=== PATIENT | male | born 1950 | race Caucasian/White ===

== ENCOUNTER 2022-04-23 16:31 | Inpatient (IN) | payer OTHER, MEDICARE, MEDICAID ==
[~2022-04-23] VITALS: Ht 185.4 cm; Wt 142.4 kg
[~2022-04-23 16:31] MED LIST: ACET325T PO; ANT30 PO; CARV6.2554 PO; CEFAZOLIN 2 GM IVPB PREMIX 50 ML IV ONE; CLONIDINE PO; DEXAMETHASONE SOD PHOSPHATE 4 MG/ML VIAL ONE; DOCU-144 PO; DRISDOL PO; FURO-150 PO; HEPARIN SODIUM,PORCINE/NS/PF 1,000 UNITS/500 ML BAG IV ONE; HYDR-3917 PO; HYDR-4039 PO; LIDOCAINE 1% 10 MG/ML, 20 ML MDV ONE; LIP40 PO; NEU300 PO; NIFE90TA48 PO; NS 1000 ML IV.SOLN IV ONE; ONDANSETRON HCL 4 MG/2 ML VIAL ONE; POLY17PO4 PO; PROPOFOL 200MG/ 20ML VIAL (DIPRIVAN) IV ONE; SERT-131 PO; SEVOFLURANE 15 MIN GAS INH ONE; SUCCINYLCHOLINE CHLORIDE 20 MG/ML(QUELICIN) ONE; TELM80TA2 PO; TEMA15CA5 PO; VITD2000 PO; ePHEDrine sulfate 50 MG/ML VIAL ONE
[2022-04-23 17:35] VITALS: BP_SYST 173
[2022-04-23 18:08] LABS: BASOPHILS % (AUTO) 0.6 % (0.0-2.0); EOSINOPHILS # (AUTO) 0.2 K/uL (0.0-0.4); EOSINOPHILS % (AUTO) 3.1 % (0.0-4.0); HEMATOCRIT 26.2 % (36-54); HEMOGLOBIN 8.7 g/dL (14.0-18.0); LYMPHOCYTES # (AUTO) 2.2 K/uL (1.0-5.5); MEAN CORPUSCULAR HEMOGLOBIN 28 pg (27-31); MEAN CORPUSCULAR HGB CONC 33 % (32-36); MEAN CORPUSCULAR VOLUME 85 fL (79.0-98.0); MONOCYTES # (AUTO) 0.5 K/uL (0.0-1.0); MONOCYTES % (AUTO) 6.6 % (1.7-9.3); NEUTROPHILS # (AUTO) 4.6 K/uL (1.8-7.7); NEUTROPHILS % (AUTO) 60.7 % (40.0-70.0); PLATELET COUNT (AUTO) 276 K/uL (130-430); RED BLOOD CELL COUNT(AUTO) 3.09 MIL/uL (4.2-6.2); RED CELL DISTRIBUTION WIDTH 14.6 % (9.0-15.0); WHITE BLOOD COUNT (AUTO) 7.6 K/uL (4.8-10.8)
[2022-04-23] MEDS ORDERED: TAMS-11 PO (18:10)
[2022-04-23 18:14] LABS: CALCIUM 7.2 mg/dL (8.4-11.0); CREATININE 6.53 mg/dL (0.55-1.30)
[2022-04-23 18:26] LABS: POTASSIUM 6.6 mmol/L (3.5-5.1)
[2022-04-23 18:31] LABS: BILIRUBIN,URINE NEGATIVE (NEGATIVE); BLOOD, URINE NEGATIVE (NEGATIVE); CLARITY/URINE CLEAR (CLEAR); COLOR,URINE YELLOW (YELLOW); GLUCOSE,URINE NEGATIVE (NEGATIVE); KETONES,URINE NEGATIVE (NEGATIVE); LEUKOCYTE ESTERASE ,URINE NEGATIVE (NEGATIVE); NITRITE, URINE NEGATIVE (NEGATIVE); PROTEIN URINE 2+ (NEGATIVE); UROBILINOGEN,URINE 0.2 (0.2-1.0)
[2022-04-23 18:38] LABS: BACTERIA,URINE None Seen /HPF (None Seen); MUCUS,URINE None Seen /LPF (None Seen); RBC,URINE NONE SEEN /HPF (0-3); WBC,URINE 0-3 /HPF (0-3)
[2022-04-23] MEDS ORDERED: NACL 0.9% 1,000 ML IV ONE (19:15)
[2022-04-23] MEDS ORDERED: DEXTROSE 50% JECT 50 ML DISP.SYRIN IVP ONE (19:15)
[2022-04-23] MEDS ORDERED: INSULIN REGULAR, HUMAN 10 UNITS/0.1 ML INJ IVP ONE (19:15)
[2022-04-23] MEDS ORDERED: INSULIN REGULAR, HUMAN 100 UNITS/ML, 10 ML VIAL (humuLIN R) SUBCUT PRN (19:45)
[2022-04-23] MEDS ORDERED: GLUCOSE (DEXTROSE) ORAL GEL -Adults PO PRN (20:00)
[2022-04-23] MEDS ORDERED: DEXTROSE 50%-WATER 50 ML DISP.SYRIN IVP PRN (20:00)
[2022-04-23] MEDS ORDERED: D5W 1,000 ML IV PRN (20:00)
[2022-04-23] MEDS ORDERED: SODIUM POLYSTYRENE SULFONATE 15 GM/60 ML UDBTL PO ONE (21:45)
[2022-04-23] MEDS ORDERED: MAGNESIUM SULFATE 50 ML IV PRN (22:00)
[2022-04-23] MEDS ORDERED: ONDANSETRON HCL 4 MG/2 ML VIAL IVP PRN (22:00)
[2022-04-23] MEDS ORDERED: NALOXONE HCL 0.4 MG/ML AMP (NARCAN) IVP PRN ×2 (22:00)
[2022-04-23] MEDS ORDERED: POTASSIUM CHLORIDE 20 MEQ TAB.PRT.SR PO PRN (22:00)
[2022-04-23] MEDS ORDERED: LORazepam 1 MG TABLET PO PRN (22:00)
[2022-04-23] MEDS ORDERED: DOCUSATE SODIUM 100 MG CAPSULE PO PRN (22:00)
[2022-04-23] MEDS ORDERED: MORPHINE 2 MG/ML INJ. SYRINGE IVP PRN ×2 (22:00)
[2022-04-23] MEDS ORDERED: ZOLPIDEM TARTRATE 5 MG TABLET PO PRN (22:00)
[2022-04-23] MEDS ORDERED: MUPIROCIN 2% TOPICAL OINTMENT 22 GM NS PRN (22:00)
[2022-04-23] MEDS: NACL 0.9% 1,000 ML IV SCH (22:31)
[2022-04-23] MEDS: hydrALAZINE HCL 25 MG TABLET PO SCH (22:32)
[2022-04-23 22:40] VITALS: BP_SYST 142
[2022-04-24 06:45] LABS: BASOPHILS # (AUTO) 0.1 K/uL (0.0-0.2); BASOPHILS % (AUTO) 0.7 % (0.0-2.0); EOSINOPHILS # (AUTO) 0.2 K/uL (0.0-0.4); EOSINOPHILS % (AUTO) 2.2 % (0.0-4.0); HEMATOCRIT 28.2 % (36-54); HEMOGLOBIN 9.5 g/dL (14.0-18.0); LYMPHOCYTES # (AUTO) 1.5 K/uL (1.0-5.5); LYMPHOCYTES % (AUTO) 19.7 % (20.5-51.5); MEAN CORPUSCULAR HEMOGLOBIN 29 pg (27-31); MEAN CORPUSCULAR HGB CONC 34 % (32-36); MEAN CORPUSCULAR VOLUME 86 fL (79.0-98.0); MONOCYTES # (AUTO) 0.5 K/uL (0.0-1.0); NEUTROPHILS # (AUTO) 5.6 K/uL (1.8-7.7); NEUTROPHILS % (AUTO) 71.4 % (40.0-70.0); PLATELET COUNT (AUTO) 290 K/uL (130-430); RED CELL DISTRIBUTION WIDTH 14.6 % (9.0-15.0); WHITE BLOOD COUNT (AUTO) 7.8 K/uL (4.8-10.8)
[2022-04-24 07:04] LABS: CALCIUM 7.6 mg/dL (8.4-11.0); CREATININE 6.42 mg/dL (0.55-1.30); POTASSIUM 5.6 mmol/L (3.5-5.1)
[2022-04-24 08:00] VITALS: BP_SYST 195
[2022-04-24] MEDS: TAMSULOSIN HCL 0.4 MG CAP PO SCH (08:30)
[2022-04-24] MEDS: hydrALAZINE HCL 25 MG TABLET PO SCH ×3 (08:30→21:20)
[2022-04-24] MEDS: GABAPENTIN 300 MG CAPSULE PO SCH ×3 (08:30→21:21)
[2022-04-24] MEDS: SERTRALINE HCL 50 MG TABLET PO SCH (08:30)
[2022-04-24] MEDS: CARVEDILOL 6.25 MG TABLET (COREG) PO SCH ×2 (08:31→21:21)
[2022-04-24] MEDS: HEPARIN SODIUM,PORCINE 5,000 UNITS/ML VIAL SUBCUT SCH ×2 (08:32→21:24)
[2022-04-24] MEDS: NACL 0.9% 1,000 ML IV SCH (11:16)
[2022-04-24 12:10] VITALS: BP_SYST 176
[2022-04-24] MEDS: ACETAMINOPHEN 325 MG TABLET PO PRN (13:17)
[2022-04-24 16:10] VITALS: BP_SYST 199
[2022-04-24 19:54] VITALS: BP_SYST 191
[2022-04-24] MEDS: TEMAZEPAM 15 MG CAPSULE PO SCH (21:19)
[2022-04-24] MEDS: ATORVASTATIN 20 MG TABLET PO SCH (21:21)
[2022-04-24] MEDS: NIFEDIPINE 90 MG TABLET.SA (PROCARDIA XL 90 MG) PO SCH (21:37)
[2022-04-25] MEDS: NACL 0.9% 1,000 ML IV SCH ×2 (00:33→14:39)
[2022-04-25 00:47] VITALS: BP_SYST 151
[2022-04-25 06:43] LABS: BASOPHILS % (AUTO) 0.5 % (0.0-2.0); EOSINOPHILS # (AUTO) 0.2 K/uL (0.0-0.4); EOSINOPHILS % (AUTO) 2.8 % (0.0-4.0); HEMATOCRIT 25.1 % (36-54); HEMOGLOBIN 8.5 g/dL (14.0-18.0); LYMPHOCYTES % (AUTO) 28.1 % (20.5-51.5); MEAN CORPUSCULAR HEMOGLOBIN 29 pg (27-31); MEAN CORPUSCULAR HGB CONC 34 % (32-36); MEAN CORPUSCULAR VOLUME 85 fL (79.0-98.0); MONOCYTES # (AUTO) 0.5 K/uL (0.0-1.0); MONOCYTES % (AUTO) 7.5 % (1.7-9.3); NEUTROPHILS # (AUTO) 4.4 K/uL (1.8-7.7); NEUTROPHILS % (AUTO) 61.1 % (40.0-70.0); PLATELET COUNT (AUTO) 274 K/uL (130-430); RED BLOOD CELL COUNT(AUTO) 2.96 MIL/uL (4.2-6.2); RED CELL DISTRIBUTION WIDTH 14.1 % (9.0-15.0); WHITE BLOOD COUNT (AUTO) 7.1 K/uL (4.8-10.8)
[2022-04-25 07:36] VITALS: BP_SYST 125
[2022-04-25] MEDS: SERTRALINE HCL 50 MG TABLET PO SCH (09:07)
[2022-04-25] MEDS: TAMSULOSIN HCL 0.4 MG CAP PO SCH (09:08)
[2022-04-25] MEDS: hydrALAZINE HCL 25 MG TABLET PO SCH ×3 (09:08→21:31)
[2022-04-25] MEDS: CARVEDILOL 6.25 MG TABLET (COREG) PO SCH ×2 (09:08→21:32)
[2022-04-25] MEDS: GABAPENTIN 300 MG CAPSULE PO SCH ×3 (09:08→21:32)
[2022-04-25] MEDS: HEPARIN SODIUM,PORCINE 5,000 UNITS/ML VIAL SUBCUT SCH ×2 (09:09→21:42)
[2022-04-25 09:38] LABS: CALCIUM 7.3 mg/dL (8.4-11.0); CREATININE 6.42 mg/dL (0.55-1.30)
[2022-04-25 11:05] LABS: POTASSIUM 6.2 mmol/L (3.5-5.1)
[2022-04-25] MEDS ORDERED: SODIUM POLYSTYRENE SULFONATE 15 GM/60 ML UDBTL PO ONE ×2 (11:15→23:00)
[2022-04-25 12:00] VITALS: BP_SYST 134
[2022-04-25 16:00] VITALS: BP_SYST 166
[2022-04-25 20:02] VITALS: BP_SYST 185
[2022-04-25 21:07] LABS: CALCIUM 7.4 mg/dL (8.4-11.0); CREATININE 6.22 mg/dL (0.55-1.30); POTASSIUM 5.6 mmol/L (3.5-5.1)
[2022-04-25] MEDS: ATORVASTATIN 20 MG TABLET PO SCH (21:31)
[2022-04-25] MEDS: NIFEDIPINE 90 MG TABLET.SA (PROCARDIA XL 90 MG) PO SCH (21:31)
[2022-04-25] MEDS: TEMAZEPAM 15 MG CAPSULE PO SCH (21:32)
[2022-04-26 00:40] VITALS: BP_SYST 180
[2022-04-26] MEDS: NACL 0.9% 1,000 ML IV SCH ×2 (04:43→19:15)
[2022-04-26] MEDS: ACETAMINOPHEN 325 MG TABLET PO PRN (06:10)
[2022-04-26 06:52] LABS: BASOPHILS # (AUTO) 0.1 K/uL (0.0-0.2); BASOPHILS % (AUTO) 0.6 % (0.0-2.0); EOSINOPHILS # (AUTO) 0.3 K/uL (0.0-0.4); EOSINOPHILS % (AUTO) 3.1 % (0.0-4.0); HEMATOCRIT 26.8 % (36-54); LYMPHOCYTES # (AUTO) 2.7 K/uL (1.0-5.5); LYMPHOCYTES % (AUTO) 33.1 % (20.5-51.5); MEAN CORPUSCULAR HEMOGLOBIN 29 pg (27-31); MEAN CORPUSCULAR HGB CONC 34 % (32-36); MEAN CORPUSCULAR VOLUME 85 fL (79.0-98.0); MONOCYTES # (AUTO) 0.6 K/uL (0.0-1.0); MONOCYTES % (AUTO) 6.9 % (1.7-9.3); NEUTROPHILS # (AUTO) 4.6 K/uL (1.8-7.7); NEUTROPHILS % (AUTO) 56.3 % (40.0-70.0); PLATELET COUNT (AUTO) 291 K/uL (130-430); RED BLOOD CELL COUNT(AUTO) 3.16 MIL/uL (4.2-6.2); RED CELL DISTRIBUTION WIDTH 14.7 % (9.0-15.0); WHITE BLOOD COUNT (AUTO) 8.1 K/uL (4.8-10.8)
[2022-04-26 07:00] VITALS: BP_SYST 137
[2022-04-26 07:25] LABS: CALCIUM 7.6 mg/dL (8.4-11.0); CREATININE 6.53 mg/dL (0.55-1.30); POTASSIUM 5.1 mmol/L (3.5-5.1)
[2022-04-26 08:00] VITALS: BP_SYST 137
[2022-04-26] MEDS: HEPARIN SODIUM,PORCINE 5,000 UNITS/ML VIAL SUBCUT SCH (08:12)
[2022-04-26] MEDS: GABAPENTIN 300 MG CAPSULE PO SCH ×3 (08:21→20:49)
[2022-04-26] MEDS: TAMSULOSIN HCL 0.4 MG CAP PO SCH (08:21)
[2022-04-26] MEDS: SERTRALINE HCL 50 MG TABLET PO SCH (08:22)
[2022-04-26] MEDS: CARVEDILOL 6.25 MG TABLET (COREG) PO SCH ×2 (08:22→20:52)
[2022-04-26] MEDS: hydrALAZINE HCL 25 MG TABLET PO SCH ×3 (08:23→20:53)
[2022-04-26 12:00] VITALS: BP_SYST 145
[2022-04-26 17:01] VITALS: BP_SYST 138
[2022-04-26 20:00] VITALS: BP_SYST 135
[2022-04-26] MEDS: TEMAZEPAM 15 MG CAPSULE PO SCH (20:49)
[2022-04-26] MEDS: NIFEDIPINE 90 MG TABLET.SA (PROCARDIA XL 90 MG) PO SCH (20:50)
[2022-04-26] MEDS: ATORVASTATIN 20 MG TABLET PO SCH (20:51)
[2022-04-27] VITALS (7 sets, daily range): BP systolic 149–188
[2022-04-27] MEDS: HEPARIN SODIUM,PORCINE 5,000 UNITS/ML VIAL SUBCUT SCH ×3 (01:31→21:00)
[2022-04-27] MEDS: NACL 0.9% 1,000 ML IV SCH ×2 (05:31→23:51)
[2022-04-27 07:11] LABS: BASOPHILS # (AUTO) 0.1 K/uL (0.0-0.2); BASOPHILS % (AUTO) 0.6 % (0.0-2.0); EOSINOPHILS # (AUTO) 0.3 K/uL (0.0-0.4); EOSINOPHILS % (AUTO) 3.3 % (0.0-4.0); HEMATOCRIT 23.1 % (36-54); HEMOGLOBIN 7.8 g/dL (14.0-18.0); LYMPHOCYTES # (AUTO) 2.2 K/uL (1.0-5.5); LYMPHOCYTES % (AUTO) 27.1 % (20.5-51.5); MEAN CORPUSCULAR HEMOGLOBIN 29 pg (27-31); MEAN CORPUSCULAR HGB CONC 34 % (32-36); MEAN CORPUSCULAR VOLUME 85 fL (79.0-98.0); MONOCYTES # (AUTO) 0.6 K/uL (0.0-1.0); MONOCYTES % (AUTO) 7.2 % (1.7-9.3); NEUTROPHILS % (AUTO) 61.8 % (40.0-70.0); PLATELET COUNT (AUTO) 253 K/uL (130-430); RED BLOOD CELL COUNT(AUTO) 2.72 MIL/uL (4.2-6.2); RED CELL DISTRIBUTION WIDTH 14.1 % (9.0-15.0); WHITE BLOOD COUNT (AUTO) 8.1 K/uL (4.8-10.8)
[2022-04-27 08:18] LABS: CALCIUM 7.1 mg/dL (8.4-11.0); CREATININE 6.16 mg/dL (0.55-1.30); POTASSIUM 4.6 mmol/L (3.5-5.1)
[2022-04-27] MEDS: GABAPENTIN 300 MG CAPSULE PO SCH ×3 (08:26→21:50)
[2022-04-27] MEDS: TAMSULOSIN HCL 0.4 MG CAP PO SCH (08:26)
[2022-04-27] MEDS: hydrALAZINE HCL 25 MG TABLET PO SCH ×3 (08:26→21:51)
[2022-04-27] MEDS: CARVEDILOL 6.25 MG TABLET (COREG) PO SCH ×2 (08:28→21:50)
[2022-04-27] MEDS: SERTRALINE HCL 50 MG TABLET PO SCH (08:29)
[2022-04-27] MEDS ORDERED: SOD FERRIC GLUC COMPLEX/SUC 125 MG in NS 100 ML IV ONE (18:45)
[2022-04-27] MEDS ORDERED: SOD FERRIC GLUC COMPLEX/SUC 62.5 MG/5 ML VIAL (FERRLECIT) IV ONE (19:50)
[2022-04-27] MEDS: TEMAZEPAM 15 MG CAPSULE PO SCH (21:00)
[2022-04-27] MEDS: NIFEDIPINE 90 MG TABLET.SA (PROCARDIA XL 90 MG) PO SCH (21:50)
[2022-04-27] MEDS: ATORVASTATIN 20 MG TABLET PO SCH (21:51)
[2022-04-27 23:29] LABS: BILIRUBIN,URINE NEGATIVE (NEGATIVE); BLOOD, URINE 1+ (NEGATIVE); CLARITY/URINE CLEAR (CLEAR); COLOR,URINE YELLOW (YELLOW); GLUCOSE,URINE TRACE (NEGATIVE); KETONES,URINE NEGATIVE (NEGATIVE); LEUKOCYTE ESTERASE ,URINE NEGATIVE (NEGATIVE); NITRITE, URINE NEGATIVE (NEGATIVE); PROTEIN URINE 2+ (NEGATIVE); UROBILINOGEN,URINE 0.2 (0.2-1.0)
[2022-04-28 01:21] VITALS: BP_SYST 175
[2022-04-28] MEDS: amLODIPine BESYLATE 10 MG TABLET PO SCH ×2 (01:39→08:27)
[2022-04-28] MEDS: lisinopriL 20 MG TABLET PO SCH ×3 (01:39→21:00)
[2022-04-28 03:06] LABS: HEPATITIS A AB, IgM Negative (Negative); HEPATITIS B CORE AB, IgM Negative (Negative); HEPATITIS B SURFACE AG Negative (Negative)
[2022-04-28 07:29] LABS: CALCIUM 7.4 mg/dL (8.4-11.0); CREATININE 5.5 mg/dL (0.55-1.30)
[2022-04-28 07:38] LABS: BASOPHILS # (AUTO) 0.1 K/uL (0.0-0.2); BASOPHILS % (AUTO) 0.7 % (0.0-2.0); EOSINOPHILS # (AUTO) 0.3 K/uL (0.0-0.4); EOSINOPHILS % (AUTO) 3.7 % (0.0-4.0); HEMATOCRIT 24.5 % (36-54); HEMOGLOBIN 8.2 g/dL (14.0-18.0); LYMPHOCYTES # (AUTO) 2.2 K/uL (1.0-5.5); LYMPHOCYTES % (AUTO) 26.3 % (20.5-51.5); MEAN CORPUSCULAR HEMOGLOBIN 29 pg (27-31); MEAN CORPUSCULAR HGB CONC 34 % (32-36); MEAN CORPUSCULAR VOLUME 86 fL (79.0-98.0); MONOCYTES # (AUTO) 0.6 K/uL (0.0-1.0); MONOCYTES % (AUTO) 6.8 % (1.7-9.3); NEUTROPHILS # (AUTO) 5.1 K/uL (1.8-7.7); NEUTROPHILS % (AUTO) 62.5 % (40.0-70.0); PLATELET COUNT (AUTO) 264 K/uL (130-430); RED BLOOD CELL COUNT(AUTO) 2.87 MIL/uL (4.2-6.2); RED CELL DISTRIBUTION WIDTH 14.2 % (9.0-15.0); WHITE BLOOD COUNT (AUTO) 8.2 K/uL (4.8-10.8)
[2022-04-28 08:00] VITALS: BP_SYST 126
[2022-04-28] MEDS: hydrALAZINE HCL 25 MG TABLET PO SCH ×3 (08:22→21:00)
[2022-04-28] MEDS: CARVEDILOL 6.25 MG TABLET (COREG) PO SCH ×2 (08:24→21:00)
[2022-04-28] MEDS: TAMSULOSIN HCL 0.4 MG CAP PO SCH (08:26)
[2022-04-28] MEDS: GABAPENTIN 300 MG CAPSULE PO SCH ×3 (08:27→22:04)
[2022-04-28] MEDS: SERTRALINE HCL 50 MG TABLET PO SCH (08:38)
[2022-04-28] MEDS: HEPARIN SODIUM,PORCINE 5,000 UNITS/ML VIAL SUBCUT SCH ×2 (08:39→21:00)
[2022-04-28 12:57] VITALS: BP_SYST 138
[2022-04-28] MEDS: NACL 0.9% 1,000 ML IV SCH (13:58)
[2022-04-28 16:56] VITALS: BP_SYST 128
[2022-04-28] MEDS: NIFEDIPINE 90 MG TABLET.SA (PROCARDIA XL 90 MG) PO SCH (21:00)
[2022-04-28] MEDS: ATORVASTATIN 20 MG TABLET PO SCH (22:04)
[2022-04-28] MEDS: TEMAZEPAM 15 MG CAPSULE PO SCH (22:04)
[2022-04-28 22:15] VITALS: BP_SYST 134
[2022-04-29] VITALS (7 sets, daily range): BP systolic 137–184
[2022-04-29] MEDS: NACL 0.9% 1,000 ML IV SCH ×2 (00:15→04:27)
[2022-04-29] MEDS: NIFEDIPINE 90 MG TABLET.SA (PROCARDIA XL 90 MG) PO SCH ×2 (00:26→20:28)
[2022-04-29] MEDS: hydrALAZINE HCL 25 MG TABLET PO SCH ×4 (00:27→20:27)
[2022-04-29] MEDS: HEPARIN SODIUM,PORCINE 5,000 UNITS/ML VIAL SUBCUT SCH ×2 (09:00→20:26)
[2022-04-29] MEDS: lisinopriL 20 MG TABLET PO SCH ×2 (09:00→20:28)
[2022-04-29] MEDS: SERTRALINE HCL 50 MG TABLET PO SCH (09:00)
[2022-04-29] MEDS: TAMSULOSIN HCL 0.4 MG CAP PO SCH (09:00)
[2022-04-29] MEDS: CARVEDILOL 6.25 MG TABLET (COREG) PO SCH ×2 (09:00→20:28)
[2022-04-29] MEDS: GABAPENTIN 300 MG CAPSULE PO SCH ×3 (09:00→20:25)
[2022-04-29] MEDS: amLODIPine BESYLATE 10 MG TABLET PO SCH (09:00)
[2022-04-29] MEDS ORDERED: ONDANSETRON HCL 4 MG/2 ML VIAL IVP PRN (14:45)
[2022-04-29] MEDS ORDERED: MORPHINE 4 MG INJ. 4 MG/ML VIAL IVP PRN ×4 (14:45→16:30)
[2022-04-29] MEDS: HYDROcodone/ACETAMIN 5-325 MG TAB (NORCO/ VICODIN) PO PRN (17:09)
[2022-04-29] MEDS: ATORVASTATIN 20 MG TABLET PO SCH (20:25)
[2022-04-29] MEDS: TEMAZEPAM 15 MG CAPSULE PO SCH (20:25)
[2022-04-30] VITALS: BP_SYST 158
[2022-04-30] MEDS: HYDROcodone/ACETAMIN 5-325 MG TAB (NORCO/ VICODIN) PO PRN ×2 (00:16→06:13)
[2022-04-30 07:00] VITALS: BP_SYST 151
[2022-04-30 08:00] VITALS: BP_SYST 151
[2022-04-30] MEDS: hydrALAZINE HCL 25 MG TABLET PO SCH ×2 (08:05→16:33)
[2022-04-30] MEDS: CARVEDILOL 6.25 MG TABLET (COREG) PO SCH (08:17)
[2022-04-30] MEDS: GABAPENTIN 300 MG CAPSULE PO SCH ×2 (08:18→16:32)
[2022-04-30] MEDS: amLODIPine BESYLATE 10 MG TABLET PO SCH (08:18)
[2022-04-30] MEDS: lisinopriL 20 MG TABLET PO SCH (08:18)
[2022-04-30] MEDS: TAMSULOSIN HCL 0.4 MG CAP PO SCH (08:18)
[2022-04-30] MEDS: NACL 0.9% 1,000 ML IV SCH (08:19)
[2022-04-30] MEDS: SERTRALINE HCL 50 MG TABLET PO SCH (08:19)
[2022-04-30] MEDS: HEPARIN SODIUM,PORCINE 5,000 UNITS/ML VIAL SUBCUT SCH (08:19)
[2022-04-30 12:00] VITALS: BP_SYST 157
[2022-04-30] MEDS ORDERED: HEPARIN SODIUM, PORCINE 10,000 UNITS/ 10 ML VIAL MC ONE (12:15)
[2022-04-30] MEDS ORDERED: HEPARIN SODIUM,PORCINE 5,000 UNITS/ML VIAL MC ONE (12:45)
[2022-04-30 18:58] VITALS: BP_SYST 152
[2022-04-30 19:12] VITALS: BP_SYST 138
== END 2022-04-30 19:15 | disposition home or self-care (01) | DRG 725 ==
LOC: SED 16:31 → STU 19:39
PROVIDERS: ADMIT General Practice; ATTEND General Practice
PROC: 0T9B70Z Drainage of Bladder with Drainage Device, Via Natural or Artificial Opening (ICD-10-PCS; 2022-04-23)
PROC: B518ZZA Fluoroscopy of Superior Vena Cava, Guidance (ICD-10-PCS; 2022-04-29)
PROC: B548ZZA Ultrasonography of Superior Vena Cava, Guidance (ICD-10-PCS; 2022-04-29)
PROC: 02HV33Z Insertion of Infusion Device into Superior Vena Cava, Percutaneous Approach (ICD-10-PCS; principal; 2022-04-29 13:20)
PROC: 5A1D70Z Performance of Urinary Filtration, Intermittent, Less than 6 Hours Per Day (ICD-10-PCS; 2022-04-30)
DX: N40.1 Benign prostatic hyperplasia with lower urinary tract symptoms (principal); N17.0 Acute kidney failure with tubular necrosis; I13.0 Hypertensive heart and chronic kidney disease with heart failure and stage 1 through stage 4 chronic kidney disease, or unspecified chronic kidney disease; Z68.41 Body mass index [BMI] 40.0-44.9, adult; N13.9 Obstructive and reflux uropathy, unspecified; R33.8 Other retention of urine; E87.5 Hyperkalemia; N18.9 Chronic kidney disease, unspecified; E83.51 Hypocalcemia; R33.9 Retention of urine, unspecified; I48.91 Unspecified atrial fibrillation; D63.8 Anemia in other chronic diseases classified elsewhere; E78.5 Hyperlipidemia, unspecified; I34.0 Nonrheumatic mitral (valve) insufficiency; I50.9 Heart failure, unspecified; E66.9 Obesity, unspecified; Z20.822 Contact with and (suspected) exposure to COVID-19; Z88.0 Allergy status to penicillin; Z88.8 Allergy status to other drugs, medicaments and biological substances; Z79.899 Other long term (current) drug therapy; Z86.73 Personal history of transient ischemic attack (TIA), and cerebral infarction without residual deficits
CPT/HCPCS: 36415; 71045; 76000; 76770; 80048; 80074; 81000; 81003; 82962; 83036; 83735; 85025; 85730-TC; 86480; 86886; 86900; 86901; 86920; 87081; 90935; 93005; 93306; 96360; 97112-GP; 97116-GP; 99291; C1750; G0378; J0330; J0690; J1100; J1644; J1815; J2001; J2405; J2704; J2916; J7030

== ENCOUNTER 2023-03-01 07:00 | Inpatient (IN) | payer OTHER, MEDICARE, MEDICAID ==
[~2023-03-01] VITALS: Ht 182.9 cm; Wt 135.9 kg
[2023-03-01] VITALS (7 sets, daily range): BP systolic 0–171
[~2023-03-01 07:00] MED LIST changes: -CEFAZOLIN 2 GM IVPB PREMIX 50 ML IV ONE; -DEXAMETHASONE SOD PHOSPHATE 4 MG/ML VIAL ONE; -HEPARIN SODIUM,PORCINE/NS/PF 1,000 UNITS/500 ML BAG IV ONE; -LIDOCAINE 1% 10 MG/ML, 20 ML MDV ONE; -NS 1000 ML IV.SOLN IV ONE; -ONDANSETRON HCL 4 MG/2 ML VIAL ONE; -PROPOFOL 200MG/ 20ML VIAL (DIPRIVAN) IV ONE; -SEVOFLURANE 15 MIN GAS INH ONE; -SUCCINYLCHOLINE CHLORIDE 20 MG/ML(QUELICIN) ONE; +TAMS-11 PO; -ePHEDrine sulfate 50 MG/ML VIAL ONE
[2023-03-01 07:28] LABS: BASOPHILS # (AUTO) 0.1 K/uL (0.0-0.2); BASOPHILS % (AUTO) 0.6 % (0.0-2.0); EOSINOPHILS # (AUTO) 0.1 K/uL (0.0-0.4); EOSINOPHILS % (AUTO) 1.6 % (0.0-4.0); HEMATOCRIT 38.1 % (36-54); HEMOGLOBIN 12.6 g/dL (14.0-18.0); LYMPHOCYTES # (AUTO) 1.9 K/uL (1.0-5.5); LYMPHOCYTES % (AUTO) 23.5 % (20.5-51.5); MEAN CORPUSCULAR HEMOGLOBIN 32 pg (27-31); MEAN CORPUSCULAR HGB CONC 33 % (32-36); MEAN CORPUSCULAR VOLUME 95 fL (79.0-98.0); MONOCYTES # (AUTO) 0.6 K/uL (0.0-1.0); MONOCYTES % (AUTO) 6.8 % (1.7-9.3); NEUTROPHILS # (AUTO) 5.5 K/uL (1.8-7.7); NEUTROPHILS % (AUTO) 67.5 % (40.0-70.0); PLATELET COUNT (AUTO) 234 K/uL (130-430); RED BLOOD CELL COUNT(AUTO) 4.01 MIL/uL (4.2-6.2); RED CELL DISTRIBUTION WIDTH 14.9 % (9.0-15.0); WHITE BLOOD COUNT (AUTO) 8.2 K/uL (4.8-10.8)
[2023-03-01 07:55] LABS: ANION GAP 9 (5-15); CALCIUM 7.7 mg/dL (8.4-11.0); CHLORIDE 101 mmol/L (98-107); CREATININE 6.09 mg/dL (0.55-1.30); GLUCOSE 103 mg/dL (70-99); UREA NITROGEN, BLOOD 46 mg/dL (8-21)
[2023-03-01 08:05] LABS: ALANINE AMINOTRANSFERASE 42 U/L (12-78); ALBUMIN 3.4 g/dL (3.4-4.8); ASPARTATE AMINOTRANSFERASE 30 U/L (10-37); TOTAL BILIRUBIN 0.5 mg/dL (0.0-1.0)
[2023-03-01] MEDS ORDERED: BACL10TA PO (09:38)
[2023-03-01] MEDS ORDERED: LACT10SO7 PO (09:38)
[2023-03-01] MEDS ORDERED: FLO44 NAS (09:38)
[2023-03-01] MEDS ORDERED: REN800 PO (09:38)
[2023-03-01] MEDS ORDERED: CALC667T6 PO (09:38)
[2023-03-01] MEDS ORDERED: NOR10 PO (09:38)
[2023-03-01] MEDS ORDERED: IMI50 PO (09:38)
[2023-03-01] MEDS ORDERED: FOLI0.8T42 PO (09:38)
[2023-03-01] MEDS ORDERED: ONDA-8 TL (09:38)
[2023-03-01] MEDS ORDERED: MORPHINE 2 MG/ML INJ. SYRINGE IVP PRN (21:45)
[2023-03-01] MEDS ORDERED: NALOXONE HCL 0.4 MG/ML AMP (NARCAN) IVP PRN (21:45)
[2023-03-01] MEDS ORDERED: ONDANSETRON HCL 4 MG/2 ML VIAL IVP PRN (21:45)
[2023-03-01] MEDS: cloNIDine HCL 0.1 MG TABLET PO PRN (21:46)
[2023-03-02 08:00] VITALS: BP_SYST 155
[2023-03-02] MEDS ORDERED: NON-FORMULARY MEDICATION (Lactulose 20 GM) PO PRN (08:45)
[2023-03-02] MEDS ORDERED: DOCUSATE SODIUM 100 MG CAPSULE PO PRN (08:45)
[2023-03-02] MEDS ORDERED: ONDANSETRON 4 MG ODT TAB TL PRN (08:45)
[2023-03-02] MEDS ORDERED: NON-FORMULARY MEDICATION (Calcium Acetate 2 TAB) PO SCH (09:00)
[2023-03-02] MEDS ORDERED: SEVELAMER HCL Non-Formulary 800 MG TABLET PO SCH (09:00)
[2023-03-02 09:37] LABS: BASOPHILS % (AUTO) 0.5 % (0.0-2.0); EOSINOPHILS # (AUTO) 0.2 K/uL (0.0-0.4); EOSINOPHILS % (AUTO) 2.3 % (0.0-4.0); HEMATOCRIT 40.5 % (36-54); HEMOGLOBIN 13.4 g/dL (14.0-18.0); LYMPHOCYTES # (AUTO) 1.9 K/uL (1.0-5.5); LYMPHOCYTES % (AUTO) 25.8 % (20.5-51.5); MEAN CORPUSCULAR HEMOGLOBIN 32 pg (27-31); MEAN CORPUSCULAR HGB CONC 33 % (32-36); MEAN CORPUSCULAR VOLUME 95 fL (79.0-98.0); MONOCYTES # (AUTO) 0.4 K/uL (0.0-1.0); NEUTROPHILS # (AUTO) 4.9 K/uL (1.8-7.7); NEUTROPHILS % (AUTO) 66.4 % (40.0-70.0); PLATELET COUNT (AUTO) 235 K/uL (130-430); RED BLOOD CELL COUNT(AUTO) 4.24 MIL/uL (4.2-6.2); RED CELL DISTRIBUTION WIDTH 14.7 % (9.0-15.0); WHITE BLOOD COUNT (AUTO) 7.4 K/uL (4.8-10.8)
[2023-03-02] MEDS ORDERED: CARVEDILOL 6.25 MG TABLET (COREG) PO ONE (10:00)
[2023-03-02 10:09] LABS: ANION GAP 10 (5-15); CHLORIDE 101 mmol/L (98-107); CREATININE 6.74 mg/dL (0.55-1.30); GLUCOSE 107 mg/dL (70-99); UREA NITROGEN, BLOOD 56 mg/dL (8-21)
[2023-03-02] MEDS ORDERED: SERTRALINE HCL 50 MG TABLET PO ONE (10:15)
[2023-03-02] MEDS ORDERED: NEPHROVITE, (FOLIC ACID/VITAMIN B COMP W-C 1 TAB) PO ONE (10:15)
[2023-03-02] MEDS ORDERED: LACTULOSE 20 GM/30 ML UDC PO PRN (10:15)
[2023-03-02 10:22] LABS: ALANINE AMINOTRANSFERASE 79 U/L (12-78); ALBUMIN 3.5 g/dL (3.4-4.8); ASPARTATE AMINOTRANSFERASE 19 U/L (10-37); CHOLESTEROL 103 mg/dL (<200); HDL CHOLESTEROL 57 mg/dL (>45); THYROID STIMULATING HORMONE 2.14 uIu/mL (0.34-4.82); TOTAL BILIRUBIN 0.6 mg/dL (0.0-1.0); TRIGLYCERIDES 96 mg/dL (30-150)
[2023-03-02 11:00] VITALS: BP_SYST 138
[2023-03-02] MEDS ORDERED: ASPIRIN 81 MG TABLET(ECOTRIN) PO SCH (11:00)
[2023-03-02] MEDS ORDERED: amLODIPine BESYLATE 10 MG TABLET PO ONE (11:00)
[2023-03-02] MEDS ORDERED: ASPIRIN 81 MG TABLET(ECOTRIN) PO ONE (11:00)
[2023-03-02] MEDS: CALCIUM ACETATE 667 MG CAP PO SCH ×2 (11:46→18:09)
[2023-03-02] MEDS: SEVELAMER CARBONATE 800 MG TABLET PO SCH ×2 (12:00→18:08)
[2023-03-02 15:17] VITALS: BP_SYST 149
[2023-03-02 16:00] VITALS: BP_SYST 140
[2023-03-02 20:30] VITALS: BP_SYST 148
[2023-03-02] MEDS: ATORVASTATIN 20 MG TABLET PO SCH (22:14)
[2023-03-02] MEDS: CARVEDILOL 6.25 MG TABLET (COREG) PO SCH (22:15)
[2023-03-03 01:00] VITALS: BP_SYST 149
[2023-03-03 07:02] LABS: BASOPHILS % (AUTO) 0.5 % (0.0-2.0); EOSINOPHILS # (AUTO) 0.2 K/uL (0.0-0.4); EOSINOPHILS % (AUTO) 1.8 % (0.0-4.0); HEMATOCRIT 38.9 % (36-54); HEMOGLOBIN 12.8 g/dL (14.0-18.0); LYMPHOCYTES # (AUTO) 2.4 K/uL (1.0-5.5); LYMPHOCYTES % (AUTO) 28.4 % (20.5-51.5); MEAN CORPUSCULAR HEMOGLOBIN 31 pg (27-31); MEAN CORPUSCULAR HGB CONC 33 % (32-36); MEAN CORPUSCULAR VOLUME 94 fL (79.0-98.0); MONOCYTES # (AUTO) 0.6 K/uL (0.0-1.0); MONOCYTES % (AUTO) 6.7 % (1.7-9.3); NEUTROPHILS # (AUTO) 5.2 K/uL (1.8-7.7); NEUTROPHILS % (AUTO) 62.6 % (40.0-70.0); PLATELET COUNT (AUTO) 249 K/uL (130-430); RED BLOOD CELL COUNT(AUTO) 4.13 MIL/uL (4.2-6.2); RED CELL DISTRIBUTION WIDTH 14.5 % (9.0-15.0); WHITE BLOOD COUNT (AUTO) 8.4 K/uL (4.8-10.8)
[2023-03-03 07:28] LABS: ALANINE AMINOTRANSFERASE 54 U/L (12-78); ALBUMIN 3.4 g/dL (3.4-4.8); ANION GAP 9 (5-15); ASPARTATE AMINOTRANSFERASE 12 U/L (10-37); CALCIUM 8.6 mg/dL (8.4-11.0); CHLORIDE 99 mmol/L (98-107); CREATININE 6.18 mg/dL (0.55-1.30); GLUCOSE 92 mg/dL (70-99); TOTAL BILIRUBIN 0.6 mg/dL (0.0-1.0); UREA NITROGEN, BLOOD 47 mg/dL (8-21)
[2023-03-03 08:00] VITALS: BP_SYST 154
[2023-03-03] MEDS: NEPHROVITE, (FOLIC ACID/VITAMIN B COMP W-C 1 TAB) PO SCH (08:36)
[2023-03-03] MEDS: CALCIUM ACETATE 667 MG CAP PO SCH ×3 (08:36→17:16)
[2023-03-03] MEDS: ASPIRIN 81 MG TABLET(ECOTRIN) PO SCH (08:36)
[2023-03-03] MEDS: SEVELAMER CARBONATE 800 MG TABLET PO SCH ×3 (08:36→17:15)
[2023-03-03] MEDS: amLODIPine BESYLATE 10 MG TABLET PO SCH (08:37)
[2023-03-03] MEDS: CARVEDILOL 6.25 MG TABLET (COREG) PO SCH ×2 (08:37→20:59)
[2023-03-03] MEDS: SERTRALINE HCL 50 MG TABLET PO SCH (08:38)
[2023-03-03] MEDS ORDERED: DIATR MEGLU/DIATRIZ SOD 30 ML SOLUTION PO ONE (10:24)
[2023-03-03 11:32] VITALS: BP_SYST 160
[2023-03-03 15:36] VITALS: BP_SYST 164
[2023-03-03 16:37] VITALS: BP_SYST 144
[2023-03-03] MEDS: ATORVASTATIN 20 MG TABLET PO SCH (20:59)
[2023-03-03 21:00] VITALS: BP_SYST 147
[2023-03-04 00:56] VITALS: BP_SYST 150
[2023-03-04 06:50] LABS: BASOPHILS % (AUTO) 0.6 % (0.0-2.0); EOSINOPHILS # (AUTO) 0.2 K/uL (0.0-0.4); EOSINOPHILS % (AUTO) 2.3 % (0.0-4.0); HEMATOCRIT 39.9 % (36-54); HEMOGLOBIN 13.2 g/dL (14.0-18.0); LYMPHOCYTES # (AUTO) 2.4 K/uL (1.0-5.5); LYMPHOCYTES % (AUTO) 31.9 % (20.5-51.5); MEAN CORPUSCULAR HEMOGLOBIN 31 pg (27-31); MEAN CORPUSCULAR HGB CONC 33 % (32-36); MEAN CORPUSCULAR VOLUME 94 fL (79.0-98.0); MONOCYTES # (AUTO) 0.6 K/uL (0.0-1.0); MONOCYTES % (AUTO) 7.5 % (1.7-9.3); NEUTROPHILS # (AUTO) 4.4 K/uL (1.8-7.7); NEUTROPHILS % (AUTO) 57.7 % (40.0-70.0); PLATELET COUNT (AUTO) 245 K/uL (130-430); RED BLOOD CELL COUNT(AUTO) 4.25 MIL/uL (4.2-6.2); RED CELL DISTRIBUTION WIDTH 14.5 % (9.0-15.0); WHITE BLOOD COUNT (AUTO) 7.6 K/uL (4.8-10.8)
[2023-03-04 07:04] LABS: ANION GAP 10 (5-15); CALCIUM 8.8 mg/dL (8.4-11.0); CHLORIDE 99 mmol/L (98-107); GLUCOSE 92 mg/dL (70-99); UREA NITROGEN, BLOOD 59 mg/dL (8-21)
[2023-03-04] MEDS: CALCIUM ACETATE 667 MG CAP PO SCH ×2 (08:12→13:32)
[2023-03-04] MEDS: SEVELAMER CARBONATE 800 MG TABLET PO SCH ×2 (08:12→13:32)
[2023-03-04 08:30] VITALS: BP_SYST 149
[2023-03-04] MEDS ORDERED: PANTOPRAZOLE SODIUM 40 MG TAB PO SCH (09:00)
[2023-03-04] MEDS: SERTRALINE HCL 50 MG TABLET PO SCH (09:44)
[2023-03-04] MEDS: NEPHROVITE, (FOLIC ACID/VITAMIN B COMP W-C 1 TAB) PO SCH (09:44)
[2023-03-04] MEDS: amLODIPine BESYLATE 10 MG TABLET PO SCH (09:46)
[2023-03-04] MEDS: CARVEDILOL 6.25 MG TABLET (COREG) PO SCH (09:46)
[2023-03-04] MEDS: ASPIRIN 81 MG TABLET(ECOTRIN) PO SCH (10:03)
[2023-03-04 11:28] VITALS: BP_SYST 167
[2023-03-04 14:20] VITALS: BP_SYST 166
[2023-03-04] MEDS: cloNIDine HCL 0.1 MG TABLET PO PRN (14:29)
[2023-03-04 15:06] VITALS: BP_SYST 166
== END 2023-03-04 16:05 | disposition home or self-care (01) | DRG 313 ==
LOC: SED 07:00 → STU 09:55 → SMU 03-04 08:36
PROVIDERS: ADMIT Internal Medicine; ATTEND Internal Medicine
PROC: 5A1D70Z Performance of Urinary Filtration, Intermittent, Less than 6 Hours Per Day (ICD-10-PCS; principal; 2023-03-02)
DX: R07.89 Other chest pain (principal); N18.6 End stage renal disease; I12.0 Hypertensive chronic kidney disease with stage 5 chronic kidney disease or end stage renal disease; I69.354 Hemiplegia and hemiparesis following cerebral infarction affecting left non-dominant side; Z68.41 Body mass index [BMI] 40.0-44.9, adult; N40.0 Benign prostatic hyperplasia without lower urinary tract symptoms; E78.5 Hyperlipidemia, unspecified; D64.9 Anemia, unspecified; E66.01 Morbid (severe) obesity due to excess calories; R73.03 Prediabetes; I25.10 Atherosclerotic heart disease of native coronary artery without angina pectoris; Z88.0 Allergy status to penicillin; Z79.899 Other long term (current) drug therapy; Z79.1 Long term (current) use of non-steroidal anti-inflammatories (NSAID); Z82.49 Family history of ischemic heart disease and other diseases of the circulatory system; Z83.3 Family history of diabetes mellitus; Z90.49 Acquired absence of other specified parts of digestive tract; Z99.2 Dependence on renal dialysis
CPT/HCPCS: 36415; 71045; 76376; 80048; 80053; 80061; 82550; 83735; 84443; 84484; 85025; 87081; 90935; 93005; 97116-GP; 97530-GP; 99285; G0378; J7042; Q9964

== ENCOUNTER 2023-04-28 21:21 | Emergency (ER) | payer OTHER, MEDICARE, MEDICAID ==
[~2023-04-28] VITALS: Ht 172.7 cm; Wt 117.9 kg
[~2023-04-28 21:21] MED LIST changes: -ANT30 PO; +BACL10TA PO; +CALC667T6 PO; -CLONIDINE PO; -DRISDOL PO; +FLO44 NAS; +FOLI0.8T42 PO; -FURO-150 PO; +IMI50 PO; +LACT10SO7 PO; -NIFE90TA48 PO; +NOR10 PO; +ONDA-8 TL; -POLY17PO4 PO; +REN800 PO; -TELM80TA2 PO; -TEMA15CA5 PO; -VITD2000 PO
[2023-04-28 21:29] VITALS: BP_SYST 124; PULSE 64; RESP 18; TEMP 98.4; O2SAT 96
[2023-04-28] MEDS ORDERED: NACL 0.9% 1,000 ML IV ONE (23:15)
[2023-04-28 23:53] LABS: BILIRUBIN,URINE 1+ (NEGATIVE); BLOOD, URINE 3+ (NEGATIVE); CLARITY/URINE CLOUDY (CLEAR); COLOR,URINE YELLOW (YELLOW); GLUCOSE,URINE NEGATIVE (NEGATIVE); KETONES,URINE TRACE (NEGATIVE); LEUKOCYTE ESTERASE ,URINE TRACE (NEGATIVE); NITRITE, URINE NEGATIVE (NEGATIVE); PH,URINE 5.5 (5.0-8.0); PROTEIN URINE 2+ (NEGATIVE); UROBILINOGEN,URINE 0.2 (0.2-1.0)
[2023-04-28 23:53] LABS: BASOPHILS # (AUTO) 0.1 K/uL (0.0-0.2); BASOPHILS % (AUTO) 0.7 % (0.0-2.0); EOSINOPHILS # (AUTO) 0.2 K/uL (0.0-0.4); EOSINOPHILS % (AUTO) 2.3 % (0.0-4.0); HEMATOCRIT 31.9 % (36-54); HEMOGLOBIN 10.6 g/dL (14.0-18.0); LYMPHOCYTES # (AUTO) 3.1 K/uL (1.0-5.5); MEAN CORPUSCULAR HEMOGLOBIN 31 pg (27-31); MEAN CORPUSCULAR HGB CONC 33 % (32-36); MEAN CORPUSCULAR VOLUME 93 fL (79.0-98.0); MONOCYTES # (AUTO) 0.8 K/uL (0.0-1.0); MONOCYTES % (AUTO) 8.3 % (1.7-9.3); NEUTROPHILS # (AUTO) 5.7 K/uL (1.8-7.7); NEUTROPHILS % (AUTO) 57.7 % (40.0-70.0); PLATELET COUNT (AUTO) 271 K/uL (130-430); RED BLOOD CELL COUNT(AUTO) 3.44 MIL/uL (4.2-6.2); RED CELL DISTRIBUTION WIDTH 14.5 % (9.0-15.0)
[2023-04-29 00:01] LABS: ANION GAP 8 (5-15); CALCIUM 7.8 mg/dL (8.4-11.0); CARBON DIOXIDE 28 mmol/L (23-29); CHLORIDE 101 mmol/L (98-107); GLUCOSE 98 mg/dL (74-106); POTASSIUM 4.5 mmol/L (3.5-5.1); SODIUM SERUM 137 mmol/L (136-145); UREA NITROGEN, BLOOD 58 mg/dL (8-21)
[2023-04-29 00:04] LABS: BACTERIA,URINE FEW /HPF (None Seen); RBC,URINE >100 /HPF (0-3)
[2023-04-29 00:06] LABS: ALANINE AMINOTRANSFERASE 14 U/L (12-78); ALBUMIN 3.4 g/dL (3.4-4.8); ASPARTATE AMINOTRANSFERASE 6 U/L (10-37); TOTAL BILIRUBIN 0.4 mg/dL (0.0-1.0); TOTAL PROTEIN, SERUM 7.2 g/dL (6.4-8.3)
[2023-04-29] MEDS ORDERED: cefTRIAXone 1 GM IVPB PREMIX 50 ML IV ONE (03:15)
[2023-04-29] MEDS ORDERED: CIPR500T5 PO (06:07)
[2023-04-29 07:55] VITALS: BP_SYST 130; PULSE 65; RESP 18; TEMP 97.8; O2SAT 97
== END 2023-04-29 07:53 ==
LOC: SED 21:21
DX: N39.0 Urinary tract infection, site not specified (principal); R31.9 Hematuria, unspecified; R30.9 Painful micturition, unspecified; Z88.0 Allergy status to penicillin; Z79.899 Other long term (current) drug therapy
CPT/HCPCS: 99285; 74176; 71045; 80053; 81000; 85025; 87040; 87086; 36415; 93005; 76376; 83605; 96365; 96361; J7030 ×2; J0696

== ENCOUNTER 2023-07-09 03:06 | Emergency (ER) | payer OTHER, MEDICARE, MEDICAID ==
[~2023-07-09] VITALS: Ht 172.7 cm; Wt 122.5 kg
[~2023-07-09 03:06] MED LIST changes: +CIPR500T5 PO
[2023-07-09 03:10] VITALS: BP_SYST 124; PULSE 84; RESP 18; TEMP 98.3; O2SAT 96
[2023-07-09 04:04] LABS: BASOPHILS # (AUTO) 0.1 K/uL (0.0-0.2); BASOPHILS % (AUTO) 0.6 % (0.0-2.0); EOSINOPHILS # (AUTO) 0.1 K/uL (0.0-0.4); EOSINOPHILS % (AUTO) 1.2 % (0.0-4.0); HEMATOCRIT 32.2 % (36-54); HEMOGLOBIN 10.5 g/dL (14.0-18.0); LYMPHOCYTES # (AUTO) 1.8 K/uL (1.0-5.5); LYMPHOCYTES % (AUTO) 19.4 % (20.5-51.5); MEAN CORPUSCULAR HEMOGLOBIN 31 pg (27-31); MEAN CORPUSCULAR HGB CONC 33 % (32-36); MEAN CORPUSCULAR VOLUME 94 fL (79.0-98.0); MONOCYTES # (AUTO) 0.7 K/uL (0.0-1.0); MONOCYTES % (AUTO) 8.1 % (1.7-9.3); NEUTROPHILS # (AUTO) 6.4 K/uL (1.8-7.7); NEUTROPHILS % (AUTO) 70.7 % (40.0-70.0); PLATELET COUNT (AUTO) 269 K/uL (130-430); RED BLOOD CELL COUNT(AUTO) 3.43 MIL/uL (4.2-6.2); RED CELL DISTRIBUTION WIDTH 14.8 % (9.0-15.0)
[2023-07-09 04:14] LABS: ALANINE AMINOTRANSFERASE 19 U/L (12-78); ALBUMIN 3.2 g/dL (3.4-4.8); ANION GAP 12 (5-15); ASPARTATE AMINOTRANSFERASE 6 U/L (10-37); CALCIUM 8.3 mg/dL (8.4-11.0); CARBON DIOXIDE 23 mmol/L (23-29); CHLORIDE 99 mmol/L (98-107); CREATINE KINASE, TOTAL 227 U/L (39-308); GLUCOSE 139 mg/dL (74-106); POTASSIUM 4.3 mmol/L (3.5-5.1); SODIUM SERUM 134 mmol/L (136-145); TOTAL BILIRUBIN 0.4 mg/dL (0.0-1.0); TOTAL PROTEIN, SERUM 7.1 g/dL (6.4-8.3); UREA NITROGEN, BLOOD 81 mg/dL (8-21)
[2023-07-09 04:17] LABS: CREATININE 8.82 mg/dL (0.55-1.30)
[2023-07-09] MEDS ORDERED: ACETAMINOPHEN 500 MG TABLET PO ONE (05:30)
[2023-07-09 09:59] VITALS: BP_SYST 128; PULSE 65; RESP 16; TEMP 98.1; O2SAT 95
== END 2023-07-09 09:50 | disposition home or self-care (01) ==
LOC: SED 03:06
DX: S82.62XA Displaced fracture of lateral malleolus of left fibula, initial encounter for closed fracture (principal); S09.90XA Unspecified injury of head, initial encounter; R55 Syncope and collapse; I12.0 Hypertensive chronic kidney disease with stage 5 chronic kidney disease or end stage renal disease; N18.6 End stage renal disease; Z88.0 Allergy status to penicillin; Z79.899 Other long term (current) drug therapy; W19.XXXA Unspecified fall, initial encounter; Y93.89 Activity, other specified; Y92.89 Other specified places as the place of occurrence of the external cause; Y99.8 Other external cause status
CPT/HCPCS: 36415; 70450-TC; 71045; 76376; 80053; 82550; 83880; 84484; 85025; 93005; 99285

== ENCOUNTER 2023-09-19 21:07 | Emergency (ER) | payer OTHER, MEDICARE, MEDICAID ==
[~2023-09-19] VITALS: Ht 182.9 cm; Wt 135.6 kg
[2023-09-19 21:10] VITALS: BP_SYST 116; PULSE 65; RESP 17; TEMP 99.2; O2SAT 98
[2023-09-20 02:17] VITALS: BP_SYST 135; PULSE 64; RESP 16; TEMP 98; O2SAT 95
== END 2023-09-20 02:17 | disposition home or self-care (01) ==
LOC: SED 21:07
DX: M54.50 Low back pain, unspecified (principal); Z88.0 Allergy status to penicillin; Z79.899 Other long term (current) drug therapy
CPT/HCPCS: 72100-TC; 99285

== ENCOUNTER 2023-11-22 01:01 | Inpatient (IN) | payer OTHER, MEDICARE, MEDICAID ==
[~2023-11-22] VITALS: Ht 182.9 cm; Wt 141.7 kg
[~2023-11-22 01:01] MED LIST changes: -HYDR-4039 PO; +HYDR50TA44 PO
[2023-11-22 01:09] VITALS: BP_SYST 136; PULSE 72; RESP 16; TEMP 97.6; O2SAT 98
[2023-11-22] MEDS ORDERED: iohexoL 350 mgI/mL, 100 ML INFUS..BTL IV ONE (01:21)
[2023-11-22 02:24] LABS: BASOPHILS % (AUTO) 0.7 % (0.0-2.0); EOSINOPHILS # (AUTO) 0.2 K/uL (0.0-0.4); EOSINOPHILS % (AUTO) 2.2 % (0.0-4.0); HEMATOCRIT 31.6 % (36-54); HEMOGLOBIN 10.7 g/dL (14.0-18.0); LYMPHOCYTES # (AUTO) 1.6 K/uL (1.0-5.5); LYMPHOCYTES % (AUTO) 23.8 % (20.5-51.5); MEAN CORPUSCULAR HEMOGLOBIN 32 pg (27-31); MEAN CORPUSCULAR HGB CONC 34 % (32-36); MEAN CORPUSCULAR VOLUME 96 fL (79.0-98.0); MONOCYTES # (AUTO) 0.5 K/uL (0.0-1.0); MONOCYTES % (AUTO) 7.7 % (1.7-9.3); NEUTROPHILS # (AUTO) 4.5 K/uL (1.8-7.7); NEUTROPHILS % (AUTO) 65.6 % (40.0-70.0); PLATELET COUNT (AUTO) 261 K/uL (130-430); RED BLOOD CELL COUNT(AUTO) 3.31 MIL/uL (4.2-6.2); RED CELL DISTRIBUTION WIDTH 14.4 % (9.0-15.0); WHITE BLOOD COUNT (AUTO) 6.9 K/uL (4.8-10.8)
[2023-11-22 02:35] LABS: ANION GAP 8 (5-15); CALCIUM 8.3 mg/dL (8.4-11.0); CARBON DIOXIDE 32 mmol/L (23-29); CHLORIDE 98 mmol/L (98-107); CREATININE 7.17 mg/dL (0.55-1.30); GLUCOSE 140 mg/dL (74-106); POTASSIUM 4.1 mmol/L (3.5-5.1); SODIUM SERUM 138 mmol/L (136-145); UREA NITROGEN, BLOOD 36 mg/dL (8-21)
[2023-11-22 02:40] LABS: ALANINE AMINOTRANSFERASE 17 U/L (12-78); ALBUMIN 3.1 g/dL (3.4-4.8); ASPARTATE AMINOTRANSFERASE 8 U/L (10-37); BILIRUBIN,DIRECT 0.1 mg/dL (0.0-0.3); TOTAL BILIRUBIN 0.4 mg/dL (0.0-1.0); TOTAL PROTEIN, SERUM 7.3 g/dL (6.4-8.3)
[2023-11-22 03:13] LABS: BILIRUBIN,URINE NEGATIVE (NEGATIVE); CLARITY/URINE CLEAR (CLEAR); COLOR,URINE YELLOW (YELLOW); GLUCOSE,URINE NEGATIVE (NEGATIVE); KETONES,URINE TRACE (NEGATIVE); LEUKOCYTE ESTERASE ,URINE 1+ (NEGATIVE); NITRITE, URINE NEGATIVE (NEGATIVE); PROTEIN URINE 2+ (NEGATIVE); UROBILINOGEN,URINE 0.2 (0.2-1.0)
[2023-11-22 03:18] LABS: BLOOD, URINE TRACE (NEGATIVE)
[2023-11-22 03:26] LABS: RBC,URINE 0-3 /HPF (0-3)
[2023-11-22 03:27] LABS: BACTERIA,URINE FEW /HPF (None Seen)
[2023-11-22] MEDS: cefTRIAXone 1 GM IVPB PREMIX 50 ML IV ONE (04:23)
[2023-11-22] MEDS ORDERED: CARV12.548 PO (04:57)
[2023-11-22] MEDS ORDERED: ASCO500C18 PO (04:57)
[2023-11-22] MEDS ORDERED: CHOL200075 PO (04:57)
[2023-11-22] MEDS ORDERED: HYDR50TA44 PO (04:57)
[2023-11-22] MEDS ORDERED: MECL-261 PO (04:57)
[2023-11-22] MEDS ORDERED: FERR240T9 PO (04:57)
[2023-11-22] MEDS ORDERED: MELA5TAB21 PO (04:57)
[2023-11-22] MEDS ORDERED: ACET-2766 PO (04:57)
[2023-11-22] MEDS ORDERED: CLIN300C3 PO (04:57)
[2023-11-22] MEDS ORDERED: ASPI81CA PO (04:57)
[2023-11-22] MEDS ORDERED: PRIM50TA PO (04:57)
[2023-11-22] MEDS ORDERED: FOLI0.8T2 PO (04:57)
[2023-11-22 09:42] VITALS: BP_SYST 132; PULSE 61; RESP 16; TEMP 98.7; O2SAT 99
[2023-11-22] MEDS ORDERED: TAMS-11 PO (10:13)
[2023-11-22] MEDS ORDERED: CHOL500052 PO (10:13)
[2023-11-22] MEDS ORDERED: GABA600T PO (10:13)
[2023-11-22] MEDS ORDERED: NALOXONE HCL 0.4 MG/ML AMP (NARCAN) IVP PRN ×2 (10:30)
[2023-11-22] MEDS ORDERED: ACETAMINOPHEN 325 MG TABLET PO PRN (10:30)
[2023-11-22] MEDS ORDERED: ASPIRIN 81 MG PO SCH (10:30)
[2023-11-22] MEDS ORDERED: HYDROcodone/ACETAMIN 10-325 MG TAB PO PRN (10:30)
[2023-11-22] MEDS ORDERED: HYDROcodone/ACETAMIN 5-325 MG TAB (NORCO/ VICODIN) PO PRN (10:30)
[2023-11-22] MEDS ORDERED: LORazepam 2 MG/ML VIAL IVP PRN (10:30)
[2023-11-22] MEDS ORDERED: ONDANSETRON HCL 4 MG/2 ML VIAL IVP PRN (10:30)
[2023-11-22] MEDS ORDERED: FLUTICASONE 44 mcg/ACTUATION MDI AER.W.ADAP INH SCH (10:30)
[2023-11-22] MEDS ORDERED: MECLIZINE HCL 25 MG TABLET (ANITVERT) PO PRN (11:00)
[2023-11-22] MEDS: FERROUS GLUCONATE 324 MG TABLET PO ONE (11:50)
[2023-11-22] MEDS: ASCORBIC ACID 500 MG TABLET PO ONE (11:50)
[2023-11-22] MEDS: ASPIRIN 81 MG TAB.CHEW PO ONE (11:50)
[2023-11-22] MEDS: SERTRALINE HCL 50 MG TABLET PO ONE (11:51)
[2023-11-22] MEDS: NEPHROVITE, (FOLIC ACID/VITAMIN B COMP W-C 1 TAB) PO ONE (11:52)
[2023-11-22] MEDS: TAMSULOSIN HCL 0.4 MG CAP PO ONE (11:52)
[2023-11-22] MEDS: amLODIPine BESYLATE 10 MG TABLET PO ONE (11:52)
[2023-11-22] MEDS: CHOLECALCIFEROL (VITAMIN D3) 5,000 UNIT TABLET PO ONE (11:53)
[2023-11-22] MEDS: SEVELAMER CARBONATE 800 MG TABLET PO SCH (11:53)
[2023-11-22 12:00] VITALS: BP_SYST 108; PULSE 68; RESP 18; TEMP 98.2; O2SAT 94
[2023-11-22 13:00] VITALS: BP_SYST 133
[2023-11-22] MEDS: hydrALAZINE HCL 25 MG TABLET PO SCH (13:00)
[2023-11-22] MEDS: NORMAL SALINE 5 ML DISP.SYRIN IVF SCH (14:31)
[2023-11-22] MEDS: CALCIUM ACETATE 667 MG CAP PO SCH (14:32)
[2023-11-22] MEDS: GABAPENTIN 300 MG CAPSULE PO SCH (14:32)
[2023-11-22 16:00] VITALS: BP_SYST 129; PULSE 69; RESP 16; TEMP 98.8; O2SAT 96
[2023-11-22 19:00] VITALS: PULSE 59; RESP 18; TEMP 98.8; O2SAT 94
[2023-11-22] MEDS: CARVEDILOL 12.5 MG TABLET (COREG) PO SCH (21:00)
[2023-11-22] MEDS: MELATONIN 5 MG TABLET PO SCH (21:24)
[2023-11-22] MEDS: PRIMIDONE 50 MG TABLET PO SCH (21:24)
[2023-11-22] MEDS: ATORVASTATIN 20 MG TABLET PO SCH (21:25)
[2023-11-23] VITALS (7 sets, daily range): BP systolic 106–144; PULSE 18–74; RESP 18–20; TEMP 97.1–98.6; O2SAT 95–97
[2023-11-23 05:17] LABS: BASOPHILS # (AUTO) 0.1 K/uL (0.0-0.2); BASOPHILS % (AUTO) 0.8 % (0.0-2.0); EOSINOPHILS # (AUTO) 0.2 K/uL (0.0-0.4); EOSINOPHILS % (AUTO) 2.6 % (0.0-4.0); HEMOGLOBIN 10.4 g/dL (14.0-18.0); LYMPHOCYTES # (AUTO) 2.7 K/uL (1.0-5.5); LYMPHOCYTES % (AUTO) 35.3 % (20.5-51.5); MEAN CORPUSCULAR HEMOGLOBIN 32 pg (27-31); MEAN CORPUSCULAR HGB CONC 34 % (32-36); MEAN CORPUSCULAR VOLUME 95 fL (79.0-98.0); MONOCYTES # (AUTO) 0.6 K/uL (0.0-1.0); MONOCYTES % (AUTO) 8.1 % (1.7-9.3); NEUTROPHILS # (AUTO) 4.1 K/uL (1.8-7.7); NEUTROPHILS % (AUTO) 53.2 % (40.0-70.0); PLATELET COUNT (AUTO) 266 K/uL (130-430); RED BLOOD CELL COUNT(AUTO) 3.28 MIL/uL (4.2-6.2); RED CELL DISTRIBUTION WIDTH 13.9 % (9.0-15.0); WHITE BLOOD COUNT (AUTO) 7.7 K/uL (4.8-10.8)
[2023-11-23 05:45] LABS: ANION GAP 10 (5-15); CALCIUM 8.2 mg/dL (8.4-11.0); CARBON DIOXIDE 29 mmol/L (23-29); CHLORIDE 95 mmol/L (98-107); GLUCOSE 95 mg/dL (74-106); POTASSIUM 4.4 mmol/L (3.5-5.1); SODIUM SERUM 134 mmol/L (136-145); UREA NITROGEN, BLOOD 46 mg/dL (8-21)
[2023-11-23 05:53] LABS: CREATININE 9.31 mg/dL (0.55-1.30)
[2023-11-23] MEDS ORDERED: cefTRIAXone 1 GM in D5W 50 ML IV ONE (09:00)
[2023-11-23] MEDS: SERTRALINE HCL 50 MG TABLET PO SCH (10:36)
[2023-11-23] MEDS: NEPHROVITE, (FOLIC ACID/VITAMIN B COMP W-C 1 TAB) PO SCH (10:37)
[2023-11-23] MEDS: ASCORBIC ACID 500 MG TABLET PO SCH (10:37)
[2023-11-23] MEDS: ASPIRIN 81 MG TAB.CHEW PO SCH (10:37)
[2023-11-23] MEDS: CHOLECALCIFEROL (VITAMIN D3) 5,000 UNIT TABLET PO SCH (10:43)
[2023-11-23] MEDS: FERROUS GLUCONATE 324 MG TABLET PO SCH (10:43)
[2023-11-23] MEDS: amLODIPine BESYLATE 10 MG TABLET PO SCH (10:43)
[2023-11-23] MEDS: TAMSULOSIN HCL 0.4 MG CAP PO SCH (10:43)
[2023-11-23] MEDS: cefTRIAXone 1 GM in D5W 50 ML IV SCH (11:02)
[2023-11-23] MEDS: FLUTICASONE PROPIONATE 50 mCg/SPRAY 16 GM NS SCH (11:04)
[2023-11-24 00:19] VITALS: BP_SYST 101; PULSE 59; RESP 18; TEMP 97.3; O2SAT 97
[2023-11-24 06:14] LABS: BASOPHILS # (AUTO) 0.1 K/uL (0.0-0.2); BASOPHILS % (AUTO) 0.8 % (0.0-2.0); EOSINOPHILS # (AUTO) 0.2 K/uL (0.0-0.4); EOSINOPHILS % (AUTO) 2.5 % (0.0-4.0); HEMATOCRIT 31.6 % (36-54); HEMOGLOBIN 10.7 g/dL (14.0-18.0); LYMPHOCYTES # (AUTO) 2.4 K/uL (1.0-5.5); MEAN CORPUSCULAR HEMOGLOBIN 32 pg (27-31); MEAN CORPUSCULAR HGB CONC 34 % (32-36); MEAN CORPUSCULAR VOLUME 95 fL (79.0-98.0); MONOCYTES # (AUTO) 0.5 K/uL (0.0-1.0); MONOCYTES % (AUTO) 7.1 % (1.7-9.3); NEUTROPHILS # (AUTO) 4.5 K/uL (1.8-7.7); NEUTROPHILS % (AUTO) 58.6 % (40.0-70.0); PLATELET COUNT (AUTO) 258 K/uL (130-430); RED BLOOD CELL COUNT(AUTO) 3.35 MIL/uL (4.2-6.2); RED CELL DISTRIBUTION WIDTH 14.1 % (9.0-15.0); WHITE BLOOD COUNT (AUTO) 7.7 K/uL (4.8-10.8)
[2023-11-24 06:18] LABS: ERYTHROCYTE SEDIMENTATION RATE 46 MM/HR (0-15)
[2023-11-24 06:45] LABS: ANION GAP 10 (5-15); CALCIUM 8.6 mg/dL (8.4-11.0); CARBON DIOXIDE 30 mmol/L (23-29); CHLORIDE 96 mmol/L (98-107); GLUCOSE 98 mg/dL (74-106); PHOSPHORUS 4.5 mg/dL (2.7-4.5); POTASSIUM 4.6 mmol/L (3.5-5.1); SODIUM SERUM 136 mmol/L (136-145); UREA NITROGEN, BLOOD 34 mg/dL (8-21)
[2023-11-24 06:49] LABS: CREATININE 7.77 mg/dL (0.55-1.30)
[2023-11-24 07:41] VITALS: BP_SYST 130; PULSE 56; RESP 16; TEMP 98; O2SAT 97
[2023-11-24 12:00] VITALS: BP_SYST 124; PULSE 57; RESP 20; TEMP 98.9; O2SAT 98
[2023-11-24 16:19] VITALS: BP_SYST 120; PULSE 64; RESP 18; TEMP 98.8; O2SAT 96
[2023-11-24 20:00] VITALS: BP_SYST 121; PULSE 64; RESP 16; TEMP 97.5; O2SAT 95
[2023-11-25 00:06] VITALS: BP_SYST 132; PULSE 63; RESP 18; TEMP 97.4; O2SAT 96
[2023-11-25 05:28] LABS: ERYTHROCYTE SEDIMENTATION RATE 39 MM/HR (0-15)
[2023-11-25 05:32] LABS: BASOPHILS # (AUTO) 0.1 K/uL (0.0-0.2); BASOPHILS % (AUTO) 0.7 % (0.0-2.0); EOSINOPHILS # (AUTO) 0.2 K/uL (0.0-0.4); EOSINOPHILS % (AUTO) 2.6 % (0.0-4.0); HEMATOCRIT 31.3 % (36-54); HEMOGLOBIN 10.6 g/dL (14.0-18.0); LYMPHOCYTES # (AUTO) 2.5 K/uL (1.0-5.5); MEAN CORPUSCULAR HEMOGLOBIN 32 pg (27-31); MEAN CORPUSCULAR HGB CONC 34 % (32-36); MEAN CORPUSCULAR VOLUME 96 fL (79.0-98.0); MONOCYTES # (AUTO) 0.7 K/uL (0.0-1.0); MONOCYTES % (AUTO) 8.1 % (1.7-9.3); NEUTROPHILS # (AUTO) 4.8 K/uL (1.8-7.7); NEUTROPHILS % (AUTO) 58.6 % (40.0-70.0); PLATELET COUNT (AUTO) 248 K/uL (130-430); RED BLOOD CELL COUNT(AUTO) 3.27 MIL/uL (4.2-6.2); RED CELL DISTRIBUTION WIDTH 14.2 % (9.0-15.0); WHITE BLOOD COUNT (AUTO) 8.2 K/uL (4.8-10.8)
[2023-11-25 06:16] LABS: ALANINE AMINOTRANSFERASE 23 U/L (12-78); ALBUMIN 3.1 g/dL (3.4-4.8); ANION GAP 10 (5-15); ASPARTATE AMINOTRANSFERASE 6 U/L (10-37); CALCIUM 8.2 mg/dL (8.4-11.0); CARBON DIOXIDE 27 mmol/L (23-29); CHLORIDE 98 mmol/L (98-107); GLUCOSE 89 mg/dL (74-106); PHOSPHORUS 6.3 mg/dL (2.7-4.5); POTASSIUM 5.4 mmol/L (3.5-5.1); SODIUM SERUM 135 mmol/L (136-145); TOTAL BILIRUBIN 0.4 mg/dL (0.0-1.0); TOTAL PROTEIN, SERUM 7.1 g/dL (6.4-8.3); UREA NITROGEN, BLOOD 54 mg/dL (8-21)
[2023-11-25 06:35] LABS: CREATININE 9.88 mg/dL (0.55-1.30)
[2023-11-25 07:39] VITALS: BP_SYST 112; PULSE 57; RESP 16; TEMP 97; O2SAT 97
[2023-11-25 08:00] VITALS: O2SAT 98
[2023-11-25 14:02] VITALS: BP_SYST 118; PULSE 60; RESP 18; TEMP 98; O2SAT 98
[2023-11-25 19:55] VITALS: BP_SYST 162; PULSE 64; RESP 20; TEMP 97.1; O2SAT 97
[2023-11-26 01:20] VITALS: BP_SYST 125; PULSE 63; RESP 18; TEMP 96.8; O2SAT 98
[2023-11-26 06:10] LABS: BASOPHILS # (AUTO) 0.1 K/uL (0.0-0.2); BASOPHILS % (AUTO) 0.6 % (0.0-2.0); EOSINOPHILS # (AUTO) 0.2 K/uL (0.0-0.4); EOSINOPHILS % (AUTO) 2.9 % (0.0-4.0); HEMATOCRIT 29.8 % (36-54); HEMOGLOBIN 10.1 g/dL (14.0-18.0); LYMPHOCYTES # (AUTO) 1.8 K/uL (1.0-5.5); LYMPHOCYTES % (AUTO) 23.6 % (20.5-51.5); MEAN CORPUSCULAR HEMOGLOBIN 32 pg (27-31); MEAN CORPUSCULAR HGB CONC 34 % (32-36); MEAN CORPUSCULAR VOLUME 95 fL (79.0-98.0); MONOCYTES # (AUTO) 0.6 K/uL (0.0-1.0); NEUTROPHILS % (AUTO) 64.9 % (40.0-70.0); PLATELET COUNT (AUTO) 239 K/uL (130-430); RED BLOOD CELL COUNT(AUTO) 3.12 MIL/uL (4.2-6.2); RED CELL DISTRIBUTION WIDTH 14.1 % (9.0-15.0); WHITE BLOOD COUNT (AUTO) 7.7 K/uL (4.8-10.8)
[2023-11-26 06:48] LABS: ANION GAP 11 (5-15); CARBON DIOXIDE 26 mmol/L (23-29); CHLORIDE 97 mmol/L (98-107); GLUCOSE 152 mg/dL (74-106); PHOSPHORUS 7.2 mg/dL (2.7-4.5); POTASSIUM 4.7 mmol/L (3.5-5.1); SODIUM SERUM 134 mmol/L (136-145); UREA NITROGEN, BLOOD 70 mg/dL (8-21)
[2023-11-26 06:53] LABS: ERYTHROCYTE SEDIMENTATION RATE 45 MM/HR (0-15)
[2023-11-26 07:09] LABS: CREATININE 11.43 mg/dL (0.55-1.30)
[2023-11-26 07:50] VITALS: BP_SYST 91; PULSE 89; RESP 16; TEMP 96.6; O2SAT 96
[2023-11-26 11:41] VITALS: BP_SYST 131; PULSE 65; RESP 17; TEMP 97.1; O2SAT 94
[2023-11-26 16:04] VITALS: BP_SYST 137; PULSE 69; RESP 18; TEMP 97.6; O2SAT 94
[2023-11-26 19:30] VITALS: O2SAT 97
[2023-11-26 20:20] VITALS: BP_SYST 162; PULSE 70; RESP 18; TEMP 97.7; O2SAT 97
[2023-11-27 00:15] VITALS: BP_SYST 97; PULSE 65; RESP 18; TEMP 97.4; O2SAT 97
[2023-11-27 04:14] LABS: ERYTHROCYTE SEDIMENTATION RATE 58 MM/HR (0-15)
[2023-11-27 04:20] LABS: BASOPHILS % (AUTO) 0.6 % (0.0-2.0); EOSINOPHILS # (AUTO) 0.2 K/uL (0.0-0.4); EOSINOPHILS % (AUTO) 2.6 % (0.0-4.0); HEMATOCRIT 30.8 % (36-54); HEMOGLOBIN 10.5 g/dL (14.0-18.0); LYMPHOCYTES # (AUTO) 1.9 K/uL (1.0-5.5); LYMPHOCYTES % (AUTO) 25.1 % (20.5-51.5); MEAN CORPUSCULAR HEMOGLOBIN 32 pg (27-31); MEAN CORPUSCULAR HGB CONC 34 % (32-36); MEAN CORPUSCULAR VOLUME 95 fL (79.0-98.0); MONOCYTES # (AUTO) 0.6 K/uL (0.0-1.0); MONOCYTES % (AUTO) 8.5 % (1.7-9.3); NEUTROPHILS # (AUTO) 4.8 K/uL (1.8-7.7); NEUTROPHILS % (AUTO) 63.2 % (40.0-70.0); PLATELET COUNT (AUTO) 247 K/uL (130-430); RED BLOOD CELL COUNT(AUTO) 3.25 MIL/uL (4.2-6.2); WHITE BLOOD COUNT (AUTO) 7.5 K/uL (4.8-10.8)
[2023-11-27 04:46] LABS: ALANINE AMINOTRANSFERASE 21 U/L (12-78); ALBUMIN 3.2 g/dL (3.4-4.8); ANION GAP 9 (5-15); ASPARTATE AMINOTRANSFERASE 7 U/L (10-37); CALCIUM 8.1 mg/dL (8.4-11.0); CARBON DIOXIDE 29 mmol/L (23-29); CHLORIDE 99 mmol/L (98-107); GLUCOSE 125 mg/dL (74-106); PHOSPHORUS 5.4 mg/dL (2.7-4.5); POTASSIUM 4.6 mmol/L (3.5-5.1); SODIUM SERUM 137 mmol/L (136-145); TOTAL BILIRUBIN 0.3 mg/dL (0.0-1.0); TOTAL PROTEIN, SERUM 7.5 g/dL (6.4-8.3); UREA NITROGEN, BLOOD 53 mg/dL (8-21)
[2023-11-27 05:11] LABS: CREATININE 8.81 mg/dL (0.55-1.30)
[2023-11-27 07:26] VITALS: BP_SYST 108; PULSE 61; RESP 18; TEMP 97.1; O2SAT 95
[2023-11-27] MEDS ORDERED: SULF1TAB48 PO (09:41)
[2023-11-27 10:25] VITALS: BP_SYST 108; PULSE 61; RESP 18; TEMP 97.1; O2SAT 98
[2023-11-27 11:34] VITALS: BP_SYST 109; PULSE 66; RESP 19; TEMP 98.1; O2SAT 95
[2023-11-27 16:00] VITALS: BP_SYST 119; PULSE 67; RESP 19; TEMP 98; O2SAT 92
== END 2023-11-27 16:45 | disposition home health service (06) | DRG 100 ==
LOC: SED 01:01 → STU 04:39
PROVIDERS: ADMIT Preventive Medicine Preventive Medicine/Occupational Environmental Medicine; ATTEND Preventive Medicine Preventive Medicine/Occupational Environmental Medicine
PROC: 5A1D70Z Performance of Urinary Filtration, Intermittent, Less than 6 Hours Per Day (ICD-10-PCS; principal; 2023-11-23)
PROC: 5A1D70Z Performance of Urinary Filtration, Intermittent, Less than 6 Hours Per Day (ICD-10-PCS; 2023-11-25)
DX: R56.9 Unspecified convulsions (principal); N18.6 End stage renal disease; G45.9 Transient cerebral ischemic attack, unspecified; E87.1 Hypo-osmolality and hyponatremia; N39.0 Urinary tract infection, site not specified; Z68.41 Body mass index [BMI] 40.0-44.9, adult; I12.0 Hypertensive chronic kidney disease with stage 5 chronic kidney disease or end stage renal disease; N17.9 Acute kidney failure, unspecified; I69.354 Hemiplegia and hemiparesis following cerebral infarction affecting left non-dominant side; D63.1 Anemia in chronic kidney disease; E83.42 Hypomagnesemia; I25.10 Atherosclerotic heart disease of native coronary artery without angina pectoris; E83.51 Hypocalcemia; E88.09 Other disorders of plasma-protein metabolism, not elsewhere classified; E78.5 Hyperlipidemia, unspecified; E66.01 Morbid (severe) obesity due to excess calories; Z79.2 Long term (current) use of antibiotics; Z79.899 Other long term (current) drug therapy; Z88.1 Allergy status to other antibiotic agents; Z88.0 Allergy status to penicillin; Z98.1 Arthrodesis status; E83.41 Hypermagnesemia; E83.39 Other disorders of phosphorus metabolism; B96.89 Other specified bacterial agents as the cause of diseases classified elsewhere; Z99.2 Dependence on renal dialysis; Z99.3 Dependence on wheelchair
CPT/HCPCS: 36415; 70450-TC; 70496; 70498; 71045; 80048; 80053; 80076; 81000; 81001; 81015; 83605; 83735; 83880; 84100; 84484; 85025; 85379; 85651; 86886; 86900; 86901; 87040; 87081; 87086; 90935; 90937; 93005; 93306; 95816; 96365; 97110-GO; 97110-GP; 97112-GP; 97116-GP; 97530-GO; 97530-GP; 99285; G0378; J0696; J7060; Q9967

== ENCOUNTER 2024-03-02 18:13 | Inpatient (IN) | payer OTHER, MEDICARE, MEDICAID ==
[~2024-03-02] VITALS: Ht 182.9 cm; Wt 126.1 kg
[~2024-03-02 18:13] MED LIST changes: +ACET-2766 PO; -ACET325T PO; +ASCO500C18 PO; +ASPI81CA PO; -BACL10TA PO; +CARV12.548 PO; -CARV6.2554 PO; +CHOL500052 PO; -CIPR500T5 PO; -DOCU-144 PO; +FERR240T9 PO; +FOLI0.8T2 PO; -FOLI0.8T42 PO; +GABA600T PO; -HYDR-3917 PO; -IMI50 PO; -LACT10SO7 PO; +MECL-261 PO; +MELA5TAB21 PO; -NEU300 PO; -ONDA-8 TL; +PRIM50TA PO; +SULF1TAB48 PO
[2024-03-02 18:29] VITALS: BP_SYST 180; PULSE 80; RESP 16; TEMP 97.6; O2SAT 98
[2024-03-02 20:13] LABS: BILIRUBIN,URINE NEGATIVE (NEGATIVE); BLOOD, URINE NEGATIVE (NEGATIVE); CLARITY/URINE CLEAR (CLEAR); COLOR,URINE YELLOW (YELLOW); GLUCOSE,URINE NEGATIVE (NEGATIVE); KETONES,URINE NEGATIVE (NEGATIVE); LEUKOCYTE ESTERASE ,URINE TRACE (NEGATIVE); NITRITE, URINE NEGATIVE (NEGATIVE); PH,URINE 8.5 (5.0-8.0); PROTEIN URINE 2+ (NEGATIVE); UROBILINOGEN,URINE 0.2 (0.2-1.0)
[2024-03-02 20:21] LABS: BASOPHILS # (AUTO) 0.1 K/uL (0.0-0.2); BASOPHILS % (AUTO) 0.7 % (0.0-2.0); EOSINOPHILS # (AUTO) 0.2 K/uL (0.0-0.4); HEMATOCRIT 33.4 % (36-54); HEMOGLOBIN 11.2 g/dL (14.0-18.0); LYMPHOCYTES # (AUTO) 2.4 K/uL (1.0-5.5); LYMPHOCYTES % (AUTO) 25.9 % (20.5-51.5); MEAN CORPUSCULAR HEMOGLOBIN 32 pg (27-31); MEAN CORPUSCULAR HGB CONC 34 % (32-36); MEAN CORPUSCULAR VOLUME 94 fL (79.0-98.0); MONOCYTES # (AUTO) 0.7 K/uL (0.0-1.0); MONOCYTES % (AUTO) 7.5 % (1.7-9.3); NEUTROPHILS # (AUTO) 5.9 K/uL (1.8-7.7); NEUTROPHILS % (AUTO) 63.9 % (40.0-70.0); PLATELET COUNT (AUTO) 255 K/uL (130-430); RED BLOOD CELL COUNT(AUTO) 3.57 MIL/uL (4.2-6.2); RED CELL DISTRIBUTION WIDTH 14.8 % (9.0-15.0); WHITE BLOOD COUNT (AUTO) 9.2 K/uL (4.8-10.8)
[2024-03-02 20:27] LABS: BACTERIA,URINE FEW /HPF (None Seen); MUCUS,URINE None Seen /LPF (None Seen); RBC,URINE NONE SEEN /HPF (0-3)
[2024-03-02 20:37] LABS: ALANINE AMINOTRANSFERASE 13 U/L (12-78); ALBUMIN 3.3 g/dL (3.4-4.8); ANION GAP 10 (5-15); ASPARTATE AMINOTRANSFERASE 8 U/L (10-37); BILIRUBIN,DIRECT 0.1 mg/dL (0.0-0.3); CALCIUM 8.9 mg/dL (8.4-11.0); CARBON DIOXIDE 28 mmol/L (23-29); CHLORIDE 99 mmol/L (98-107); GLUCOSE 95 mg/dL (74-106); POTASSIUM 4.2 mmol/L (3.5-5.1); SODIUM SERUM 137 mmol/L (136-145); TOTAL BILIRUBIN 0.5 mg/dL (0.0-1.0); TOTAL PROTEIN, SERUM 7.2 g/dL (6.4-8.3); UREA NITROGEN, BLOOD 39 mg/dL (8-21)
[2024-03-02 20:49] LABS: CREATININE 8.87 mg/dL (0.55-1.30)
[2024-03-02] MEDS ORDERED: PANT20TA2 PO (20:52)
[2024-03-02] MEDS ORDERED: HYDR-3917 PO (20:52)
[2024-03-02] MEDS ORDERED: FOLI0.8T42 PO (20:52)
[2024-03-02] MEDS: LABETALOL HCL 20 MG/4 ML CARTRIDGE IVP ONE (20:57)
[2024-03-02] MEDS ORDERED: ACETAMINOPHEN 325 MG TABLET PO PRN (21:45)
[2024-03-02] MEDS ORDERED: LORazepam 2 MG/ML VIAL IVP PRN (21:45)
[2024-03-02] MEDS ORDERED: ONDANSETRON HCL 4 MG/2 ML VIAL IVP PRN (21:45)
[2024-03-02] MEDS ORDERED: cloNIDine HCL 0.1 MG TABLET PO PRN (21:45)
[2024-03-02] MEDS ORDERED: DOCUSATE SODIUM 100 MG CAPSULE PO PRN (21:45)
[2024-03-02] MEDS ORDERED: POTASSIUM CHLORIDE 20 MEQ TABLET.ER PO PRN (21:45)
[2024-03-02] MEDS ORDERED: MUPIROCIN 2% TOPICAL OINTMENT 22 GM NS PRN (21:45)
[2024-03-02] MEDS ORDERED: MORPHINE 2 MG/ML INJ. SYRINGE IVP PRN ×2 (21:45)
[2024-03-02] MEDS ORDERED: ZOLPIDEM TARTRATE 5 MG TABLET PO PRN (21:45)
[2024-03-02] MEDS ORDERED: MAGNESIUM SULFATE 50 ML IV PRN (21:45)
[2024-03-02 23:20] VITALS: BP_SYST 136; PULSE 64; RESP 18; TEMP 97.6
[2024-03-03 06:39] LABS: BASOPHILS # (AUTO) 0.1 K/uL (0.0-0.2); BASOPHILS % (AUTO) 0.7 % (0.0-2.0); EOSINOPHILS # (AUTO) 0.2 K/uL (0.0-0.4); EOSINOPHILS % (AUTO) 2.3 % (0.0-4.0); HEMATOCRIT 32.3 % (36-54); HEMOGLOBIN 10.8 g/dL (14.0-18.0); LYMPHOCYTES # (AUTO) 2.1 K/uL (1.0-5.5); LYMPHOCYTES % (AUTO) 20.8 % (20.5-51.5); MEAN CORPUSCULAR HEMOGLOBIN 31 pg (27-31); MEAN CORPUSCULAR HGB CONC 33 % (32-36); MEAN CORPUSCULAR VOLUME 94 fL (79.0-98.0); MONOCYTES # (AUTO) 0.7 K/uL (0.0-1.0); MONOCYTES % (AUTO) 7.1 % (1.7-9.3); NEUTROPHILS # (AUTO) 6.9 K/uL (1.8-7.7); NEUTROPHILS % (AUTO) 69.1 % (40.0-70.0); PLATELET COUNT (AUTO) 270 K/uL (130-430); RED BLOOD CELL COUNT(AUTO) 3.43 MIL/uL (4.2-6.2); RED CELL DISTRIBUTION WIDTH 14.6 % (9.0-15.0)
[2024-03-03 06:49] LABS: ANION GAP 13 (5-15); CALCIUM 8.8 mg/dL (8.4-11.0); CARBON DIOXIDE 27 mmol/L (23-29); CHLORIDE 101 mmol/L (98-107); GLUCOSE 89 mg/dL (74-106); POTASSIUM 4.1 mmol/L (3.5-5.1); SODIUM SERUM 141 mmol/L (136-145); UREA NITROGEN, BLOOD 39 mg/dL (8-21)
[2024-03-03 07:00] LABS: CREATININE 9.38 mg/dL (0.55-1.30)
[2024-03-03] MEDS: SEVELAMER CARBONATE 800 MG TABLET PO SCH (08:02)
[2024-03-03] MEDS: CALCIUM ACETATE 667 MG CAP PO SCH (08:02)
[2024-03-03 08:08] VITALS: O2SAT 96
[2024-03-03 08:14] VITALS: BP_SYST 168; PULSE 82; RESP 16; TEMP 98.7; O2SAT 96
[2024-03-03] MEDS: CARVEDILOL 12.5 MG TABLET (COREG) PO SCH (08:42)
[2024-03-03] MEDS: ASPIRIN 81 MG TABLET(ECOTRIN) PO SCH (08:43)
[2024-03-03] MEDS: ASCORBIC ACID 500 MG TABLET PO SCH (08:43)
[2024-03-03] MEDS: hydrALAZINE HCL 25 MG TABLET PO SCH (08:43)
[2024-03-03] MEDS: TAMSULOSIN HCL 0.4 MG CAP PO SCH (08:43)
[2024-03-03] MEDS: SERTRALINE HCL 50 MG TABLET PO SCH (08:43)
[2024-03-03] MEDS: NEPHROVITE, (FOLIC ACID/VITAMIN B COMP W-C 1 TAB) PO SCH (08:44)
[2024-03-03] MEDS: amLODIPine BESYLATE 10 MG TABLET PO SCH (08:44)
[2024-03-03] MEDS: HEPARIN SODIUM,PORCINE 5,000 UNITS/ML VIAL SUBCUT SCH (08:47)
[2024-03-03] MEDS ORDERED: NEPHROVITE, (FOLIC ACID/VITAMIN B COMP W-C 1 TAB) PO SCH (09:00)
[2024-03-03] MEDS: FLUTICASONE 44 mcg/ACTUATION MDI AER.W.ADAP INH SCH (09:00)
[2024-03-03 13:36] VITALS: BP_SYST 156; PULSE 64; RESP 16; TEMP 99.2; O2SAT 97
[2024-03-03 16:02] VITALS: BP_SYST 155; PULSE 66; RESP 16; TEMP 99; O2SAT 97
[2024-03-03 20:00] VITALS: BP_SYST 136; PULSE 64; RESP 18; TEMP 98.5; O2SAT 99
[2024-03-03] MEDS: ATORVASTATIN 20 MG TABLET PO SCH (20:34)
[2024-03-03] MEDS: PRIMIDONE 50 MG TABLET PO SCH (22:17)
[2024-03-04] VITALS: BP_SYST 115; PULSE 60; RESP 18; TEMP 97.9; O2SAT 98
[2024-03-04 05:42] LABS: BASOPHILS % (AUTO) 0.6 % (0.0-2.0); EOSINOPHILS # (AUTO) 0.2 K/uL (0.0-0.4); EOSINOPHILS % (AUTO) 2.1 % (0.0-4.0); HEMATOCRIT 34.9 % (36-54); HEMOGLOBIN 11.7 g/dL (14.0-18.0); LYMPHOCYTES # (AUTO) 1.9 K/uL (1.0-5.5); LYMPHOCYTES % (AUTO) 24.3 % (20.5-51.5); MEAN CORPUSCULAR HEMOGLOBIN 31 pg (27-31); MEAN CORPUSCULAR HGB CONC 34 % (32-36); MEAN CORPUSCULAR VOLUME 93 fL (79.0-98.0); MONOCYTES # (AUTO) 0.6 K/uL (0.0-1.0); MONOCYTES % (AUTO) 8.2 % (1.7-9.3); NEUTROPHILS % (AUTO) 64.8 % (40.0-70.0); PLATELET COUNT (AUTO) 277 K/uL (130-430); RED BLOOD CELL COUNT(AUTO) 3.73 MIL/uL (4.2-6.2); RED CELL DISTRIBUTION WIDTH 14.7 % (9.0-15.0); WHITE BLOOD COUNT (AUTO) 7.8 K/uL (4.8-10.8)
[2024-03-04 06:48] LABS: ANION GAP 8 (5-15); CALCIUM 8.8 mg/dL (8.4-11.0); CARBON DIOXIDE 30 mmol/L (23-29); CHLORIDE 97 mmol/L (98-107); GLUCOSE 97 mg/dL (74-106); POTASSIUM 3.8 mmol/L (3.5-5.1); SODIUM SERUM 135 mmol/L (136-145); UREA NITROGEN, BLOOD 31 mg/dL (8-21)
[2024-03-04 06:52] LABS: CREATININE 7.98 mg/dL (0.55-1.30)
[2024-03-04 07:45] VITALS: BP_SYST 131; PULSE 75; RESP 18; TEMP 98.4; O2SAT 97
[2024-03-04 08:20] VITALS: O2SAT 97
[2024-03-04 09:59] VITALS: BP_SYST 131; PULSE 75; O2SAT 97
[2024-03-04 12:25] VITALS: BP_SYST 112; PULSE 64; RESP 20; TEMP 97.9; O2SAT 96
[2024-03-04 14:23] VITALS: BP_SYST 121; PULSE 66; RESP 16; TEMP 98.7; O2SAT 99
[2024-03-04] MEDS ORDERED: BUDESONIDE 0.5 MG/2 ML AMPUL.NEB INH SCH (19:00)
== END 2024-03-04 15:50 | disposition home or self-care (01) | DRG 640 ==
LOC: SED 18:13 → STU 21:40 → SMU 03-04 11:52
PROVIDERS: ADMIT General Practice; ATTEND General Practice
PROC: 5A1D70Z Performance of Urinary Filtration, Intermittent, Less than 6 Hours Per Day (ICD-10-PCS; principal; 2024-03-03)
DX: E87.70 Fluid overload, unspecified (principal); N17.0 Acute kidney failure with tubular necrosis; N18.6 End stage renal disease; E44.0 Moderate protein-calorie malnutrition; N39.0 Urinary tract infection, site not specified; I69.354 Hemiplegia and hemiparesis following cerebral infarction affecting left non-dominant side; I13.2 Hypertensive heart and chronic kidney disease with heart failure and with stage 5 chronic kidney disease, or end stage renal disease; I25.10 Atherosclerotic heart disease of native coronary artery without angina pectoris; D63.1 Anemia in chronic kidney disease; E66.01 Morbid (severe) obesity due to excess calories; I48.91 Unspecified atrial fibrillation; E78.5 Hyperlipidemia, unspecified; E83.41 Hypermagnesemia; I50.9 Heart failure, unspecified; Z99.2 Dependence on renal dialysis; Z88.0 Allergy status to penicillin; Z90.49 Acquired absence of other specified parts of digestive tract; Z99.3 Dependence on wheelchair; Z79.899 Other long term (current) drug therapy; Z79.82 Long term (current) use of aspirin; Z85.46 Personal history of malignant neoplasm of prostate; Z68.37 Body mass index [BMI] 37.0-37.9, adult
CPT/HCPCS: 36415; 71045; 80048; 80076; 81000; 81001; 81015; 83037; 83735; 83880; 84484; 85025; 87081; 90935; 93005; 96374; 97530-GP; 99285; G0378; J1644